=== PATIENT | male | born 1935 | race Caucasian/White ===

== ENCOUNTER 2020-10-29 13:57 | Emergency (ER) | payer OTHER ==
[~2020-10-29] VITALS: Ht 185.4 cm; Wt 136.1 kg
[2020-10-29 14:10] VITALS: BP 125/76
[2020-10-29 15:25] LABS: Albumin 3.1 g/dL (3.4-5.0); BUN/Creatinine Ratio 20.2; Calcium 9.8 mg/dL (8.5-10.1); Potassium 4.2 mmol/L (3.5-5.1)
[2020-10-29 15:28] LABS: Bilirubin, Total 0.8 mg/dL (0.2-1.0); Total Protein 7.3 g/dL (6.4-8.2)
[2020-10-29 16:02] LABS: Basophils # (auto) 0.1 10 ^3/uL (0-0.2); Basophils % (auto) 0.8 % (0.0-2.0); Eosinophils # (auto) 0.2 10 ^3/uL (0-0.8); Eosinophils % (auto) 2.9 % (0.0-7.0); Hematocrit 41.2 % (41.0-53.0); Hemoglobin 14.1 g/dL (13.5-17.5); Lymphocytes # (auto) 1.4 10 ^3/uL (0.4-5.4); Lymphocytes % (auto) 22.6 % (10.0-50.0); Mean Corpuscular Hemoglobin 32.1 pg (28.0-32.0); Mean Corpuscular Hgb Conc. 34.2 g/dL (32.0-36.0); Mean Corpuscular Volume 93.7 fL (80.0-100.0); Monocytes # (auto) 0.8 10 ^3/uL (0-1.3); Monocytes % (auto) 12.7 % (0.0-12.0); Neutrophils # (auto) 3.6 10 ^3/uL (1.6-8.6); Nucleated Red Blood Cells % 0.3 %; Red Blood Cells 4.39 10^6/uL (4.5-5.90)
[2020-10-29 16:05] LABS: Red Cell Distribution Width 20.8 % (11.8-14.3)
== END 2020-10-29 21:23 | disposition left against medical advice (07) ==
LOC: EDBD 13:57 → ER 13:57
DX: F41.9 Anxiety disorder, unspecified (principal); M54.5 Low back pain; R60.0 Localized edema; I11.0 Hypertensive heart disease with heart failure; I50.9 Heart failure, unspecified; E11.9 Type 2 diabetes mellitus without complications; Z95.0 Presence of cardiac pacemaker
CPT/HCPCS: 36415; 71045; 80053; 80162; 83880; 85025; 85049; 85379; 93005